=== PATIENT | female | born 1985 | race Two or more races ===

== ENCOUNTER → 2021-04-01 | Outpatient (CLI) | payer OTHER ==
[~2021-04-01] MED LIST: ISOVUE-370 76% 100ML VIAL As Ordered ONE
--- NOTE | 2021-04-01 13:43 | REP ---
INDICATION: INFERTILITY. COMPARISON: None. TECHNIQUE: The referring clinician catheterized the cervix and injected contrast, I performed fluoroscopy. FINDINGS: The uterine cavity opacifies well with contrast with no persistent filling defect or contour abnormality. Both fallopian tubes opacify well and are not significantly dilated. There is free intraperitoneal spillage bilaterally indicating bilateral fallopian tube patency. IMPRESSION: Bilateral fallopian tube patency as discussed above. Fluoroscopy time 0.6 minutes. <Electronically signed by Garth Renee > 04/01/21 [id number]
== END ==
LOC: M RADPRO 12:17
PROVIDERS: ATTEND Obstetrics & Gynecology
DX: N97.9 Female infertility, unspecified (principal)
CPT/HCPCS: 58340; 74740; Q9967